=== PATIENT | male | born 1950 | race Caucasian/White ===

== ENCOUNTER 2017-10-31 11:46 | Outpatient (CLI) | payer BC, MEDICARE ==
--- NOTE | 2017-10-31 14:38 | MRI ---
MRI CERVICAL SPINE: HISTORY: Cervical pain, M54.2; cervical radiculopathy, M54.12. FINDINGS: Multiplanar, multisequence noncontrast-enhanced MRI images cervical spine obtained. The spinal cord is unremarkable with no evidence of cord masses or lesions. C1-2: Unremarkable. C2-3: There is moderate C2-3 neural foraminal narrowing due to facet hypertrophy. The right neural foramen is patent. C3-4: Disk desiccation is seen. There is a broad-based disk-osteophyte complex centrally compressin g the thecal sac resulting in mild to moderate central stenosis seen. Moderate right and mild left-s ided C3-4 neural foraminal narrowing is seen due to uncovertebral osteophyte hypertrophy. C4-5: Disk desiccation is seen. There is a broad-based disk-osteophyte complex centrally compressin g the thecal sac resulting in mild to moderate central spinal stenosis seen. The neural foramen are patent. C5-6: There is disk desiccation. There is a broad-based disk-osteophyte complex centrally . This r esults in minimal but not significant evidence of central stenosis. The right neural foramen is pat nt. There is moderate left C5-6 neural foraminal narrowing due to uncovertebral osteophyte hypertrop hy. C6-7: ACDF is seen at the C6-7 level. The central canal and neural foramen are patent. C7-T1: Unremarkable. IMPRESSION: 1. C6-7 anterior cervical diskectomy and fusion. 2. Neural foraminal narrowing as described above at multiple levels including right C3-4 and left C5 -6 levels. POS: [facility]
== END 2017-10-31 11:47 | disposition home or self-care (01) ==
LOC: MRI 11:46
PROVIDERS: ATTEND Neurological Surgery
DX: M47.22 Other spondylosis with radiculopathy, cervical region (principal); M54.2 Cervicalgia; Z98.1 Arthrodesis status
CPT/HCPCS: 72141

== ENCOUNTER 2018-03-31 15:50 | Outpatient (CLI) | payer MEDICARE, BC ==
--- NOTE | 2018-03-31 17:10 | RAD ---
CERVICAL SPINE 4 VIEWS: Date: 03/31/18 COMPARISON: 05/02/16. HISTORY: Cervical radiculopathy. Status post fusion. FINDINGS: No prevertebral soft tissue swelling. Predental space is normal. Stable moderate degenerative change at C3 and C4. Stable, uncomplicated fusion hardware at C6-C7. No perihardware lucency. In the neutral position, minimal anterolisthesis of C2 upon C3, and minimal retrolisthesis of C3 upon C4. Upon flex ion and extension, no significant translational motion. IMPRESSION: Stable degenerative changes and postoperative changes. POS: [facility]
== END 2018-03-31 15:51 | disposition home or self-care (01) ==
LOC: TBSIIMAG 15:50
PROVIDERS: ATTEND Neurological Surgery
DX: M47.22 Other spondylosis with radiculopathy, cervical region (principal); Z98.1 Arthrodesis status
CPT/HCPCS: 72040

== ENCOUNTER 2019-03-27 11:05 | Outpatient (CLI) | payer MEDICARE, BC ==
--- NOTE | 2019-03-27 12:15 | CT ---
CT of lumbar spine: 03/27/2019 HISTORY: Postlaminectomy syndrome, multiple prior back surgeries COMPARISON: 11/08/[address] imaging at 3 mm intervals through the lumbar spine with coronal and sagittal refor matted imaging. FINDINGS: Evaluation for central canal and/or neural foraminal stenosis is limited on routine CT exam ination. There is a small exophytic hypodense lesion emanating from the medial midpole of the right kidney maria esther suring approximately 1.5 cm, unchanged when compared to the 2016 exam. Scattered atherosclerotic calcification of the abdominal aorta and its branches. Stable metallic structures in the region of th e IVC noted. Stimulating leads are present, only partially imaged on this exam. Partially imaged urinary bladder is decompressed and thus not well assessed. There is a transitional vertebral body at the lumbosacral junction which appears to represent a partially sacralized L5 vertebral body. Thus, stable bilateral L4 and L5 pedicle screws are present with vertically oriented interlocking shira s. T12-L1: No osseous cause of significant central canal or neural foraminal stenosis L1-2: Mild bilateral facet hypertrophy and ligamentum flavum hypertrophy. No osseous cause of signifi cant central canal or neural foraminal stenosis. L2-3: Mild bilateral facet hypertrophy and hypertrophy of the ligamentum flavum. Mild bilateral neura l foraminal stenosis, right greater than left. No osseous cause of significant central canal stenosis. L3-4: Bilateral facet hypertrophy with at least mild bilateral neural foraminal stenosis, right great er than left. No osseous cause of significant central canal stenosis L4-5: Bilateral facet joint effusion. No osseous cause of significant central canal or neural foramin al stenosis. Postoperative hardware as detailed above. L5-S1: Mild bilateral facet hypertrophy with no osseous cause of significant central canal or neural foraminal stenosis. No worrisome lytic or blastic bone lesion. No acute fracture or evidence of dislocation. Bilateral laminectomy noted at L5 and right hemilaminectomy noted at L4. IMPRESSION: Degenerative and postoperative change as detailed above. Evaluation for central canal and /or neural foraminal stenosis is limited on this exam and thus, follow-up lumbar spine CT myelogram may be beneficial as clinically warranted.
== END 2019-03-27 11:06 | disposition home or self-care (01) ==
LOC: BICCT 11:05
PROVIDERS: ATTEND Specialist
DX: M96.1 Postlaminectomy syndrome, not elsewhere classified (principal); M47.816 Spondylosis without myelopathy or radiculopathy, lumbar region; M48.061 Spinal stenosis, lumbar region without neurogenic claudication; Z98.890 Other specified postprocedural states
CPT/HCPCS: 72131

== ENCOUNTER 2019-10-06 07:21 | Day surgery (SDC) | payer MEDICARE, BC ==
[2019-10-05 10:31] VITALS: BMI 25.0
[2019-10-06] MEDS ORDERED: PROPOFOL 200 MG/20 ML VIAL ONE (09:34)
[2019-10-06] MEDS ORDERED: Lidocaine 1% PF 5 ML VIAL ONE (09:34)
--- NOTE | 2019-10-06 11:31 | OP ---
DATE OF PROCEDURE: 10/06/2019 PROCEDURE PERFORMED: Colonoscopy with snare polypectomy. PREMEDICATION: Given by Anesthesiology Department. PREPROCEDURE DIAGNOSIS: History of colon polyps. POSTPROCEDURE DIAGNOSES: 1. Two polyps, hepatic flexure and sigmoid colon, removed. 2. Sigmoid diverticulosis. DESCRIPTION OF PROCEDURE: Written consents obtained prior to procedure. After adequate sedation, rectal exam was performed, which was normal. The endoscope was advanced to the cecum. The quality of the bowel prep was good. The cecum, the ileocecal valve, and appendiceal orifice were visualized, appeared normal. The cecum, ascending colon appeared normal. A small 4-mm sessile polyp was noted in the hepatic flexure and was removed with a cold snare and retrieved. The transverse colon, splenic flexure, descending colon appeared normal. An 8-mm sessile polyp was noted in the sigmoid colon and was removed with cold snare and retrieved. A few small diverticula were noted. The rectosigmoid junction and rectal vault appeared normal including retroflexion. The patient tolerated the procedure well. ASSESSMENT: 1. Two colon polyps removed. 2. Mild sigmoid diverticulosis coli. RECOMMENDATIONS: Await biopsy result. Job ID: [id number]
== END 2019-10-06 11:10 | disposition home or self-care (01) ==
LOC: SDC 07:21
PROVIDERS: ATTEND Internal Medicine Gastroenterology
PROC: 0DBN8ZX Excision of Sigmoid Colon, Via Natural or Artificial Opening Endoscopic, Diagnostic (ICD-10-PCS; principal; 2019-10-06)
PROC: 0DBL8ZX Excision of Transverse Colon, Via Natural or Artificial Opening Endoscopic, Diagnostic (ICD-10-PCS; 2019-10-06)
DX: Z12.11 Encounter for screening for malignant neoplasm of colon (principal); K63.5 Polyp of colon; K57.30 Diverticulosis of large intestine without perforation or abscess without bleeding; K21.9 Gastro-esophageal reflux disease without esophagitis; I25.10 Atherosclerotic heart disease of native coronary artery without angina pectoris; E11.9 Type 2 diabetes mellitus without complications; N40.0 Benign prostatic hyperplasia without lower urinary tract symptoms; F32.9 Major depressive disorder, single episode, unspecified; G83.9 Paralytic syndrome, unspecified; Z86.010 Personal history of colon polyps; Z86.73 Personal history of transient ischemic attack (TIA), and cerebral infarction without residual deficits; Z87.891 Personal history of nicotine dependence; Z79.82 Long term (current) use of aspirin; Z79.84 Long term (current) use of oral hypoglycemic drugs; Z79.899 Other long term (current) drug therapy; Z95.5 Presence of coronary angioplasty implant and graft; Z98.1 Arthrodesis status
CPT/HCPCS: 88305; J2001; J2704

== ENCOUNTER 2020-06-03 15:11 | Observation (INO) | payer MEDICARE, BC, OTHER ==
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
[2020-06-03] MEDS ORDERED: Ondansetron PF 4 MG/2 ML Vial IVP PRN (20:27)
[2020-06-03] MEDS ORDERED: HumaLOG 300 UNITS/3 ML VIAL SC PRN ×2 (20:27)
[2020-06-03] MEDS ORDERED: Ondansetron ODT 4 MG TAB PO PRN (20:27)
[2020-06-03] MEDS ORDERED: Dextrose 5% in Water 1,000 ML IV PRN (20:27)
[2020-06-03] MEDS ORDERED: hydrALAZINE 20 MG/ML VIAL SLOW IVP PRN (20:27)
[2020-06-03] MEDS ORDERED: Dextrose 50% Abboject 50 ML SYRINGE SLOW IVP PRN (20:27)
[2020-06-03] MEDS: Famotidine 20 MG TAB PO SCH (21:10)
[2020-06-03] MEDS: Acetaminophen 500 MG TAB PO SCH (21:10)
[2020-06-03] MEDS ORDERED: Morphine 2 MG/ML VIAL SLOW IVP SCH (23:00)
[2020-06-03] MEDS: traMADol HCl 50 MG TAB PO PRN (23:04)
[2020-06-04] MEDS ORDERED: Morphine 2 MG/ML VIAL SLOW IVP PRN
[2020-06-04] MEDS ORDERED: Cyclobenzaprine 10 MG TAB PO PRN (00:07)
[2020-06-04 00:11] VITALS: BMI 24.3
[2020-06-04] MEDS ORDERED: Gabapentin 300 MG CAP PO SCH ×2 (00:15→09:00)
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
[2020-06-04] MEDS: Acetaminophen 500 MG TAB PO SCH ×2 (02:41→08:40)
[2020-06-04 05:31] LABS: #Basophils 0.1 thou/uL (0.0-0.2); #Eosinphils 0.2 thou/uL (0.0-0.7); #Monocytes 0.7 thou/uL (0.11-0.59); #Neutrophils 2.6 thou/uL (1.40-6.50); %Basophils 1.4 % (0.0-1.0); %Eosinophils 2.8 % (0.0-10.0); %Lymphocytes 36.7 % (21.0-51.0); %Monocytes 12.4 % (0.0-10.0); %Neutrophils 46.6 % (42.0-75.0); Hemoglobin 12.8 g/dL (14.0-18.0); Mean Corpuscular HGB CONC 31.8 g/dL (32.0-36.0); Mean Corpuscular Hemoglobin 28.8 pg (27.0-31.0); Mean Corpuscular Volume 90.6 fL (78.0-98.0); Platelet Count 163 thou/uL (130-400); RBC Distribution Width 14.1 % (11.5-14.5); Red Blood Cell (RBC) Count 4.45 mill/uL (4.70-6.10); White Blood Cell (WBC) Count 5.6 thou/uL (4.8-10.8)
[2020-06-04] MEDS: traMADol HCl 50 MG TAB PO PRN (05:32)
[2020-06-04 06:05] LABS: Anion Gap 12 mmol/L (10-20); BUN (Urea Nitrogen) 18 mg/dL (8.4-25.7); Calc. Creatinine Clearance 93 mL/min (70-130); Calcium 9.1 mg/dL (7.8-10.44); Carbon Dioxide 26 mmol/L (23-31); Chloride 103 mmol/L (98-107); Estimated GFR-MDRD 80; Glucose 99 mg/dL (80-115); Magnesium 1.7 mg/dL (1.6-2.6); Phosphorus 3.7 mg/dL (2.3-4.7); Potassium 4.1 mmol/L (3.5-5.1); Sodium 137 mmol/L (136-145)
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
[2020-06-04] MEDS: Famotidine 20 MG TAB PO SCH (08:41)
[2020-06-04] MEDS ORDERED: Docusate 100 MG CAP PO SCH (09:00)
--- NOTE | 2020-06-04 10:42 | CT ---
PRELIMINARY REPORT/DIRECT RADIOLOGY/EMERGENCY AFTER HOURS PROCEDURE PROCEDURE: CT Head without Contrast . HISTORY: Intracranial hemorrhage. TECHNIQUE: Axial images were performed without the administration of IV contrast with or without mult iplanar reformations. COMPARISON: 11/17/2016. FINDINGS: Some patchy peripheral gyral intraparenchymal hemorrhage involving RIGHT frontal and pariet al lobe at the vertex without mass effect. There may be small amount of adjacent subarachnoid hemorr jordyn as well. Small amount of intraparenchymal gyral or subarachnoid hemorrhage on the LEFT near the vertex without mass effect Small subdural hematoma involving the falx probably on the LEFT measuring 3 mm without mass effect. No other acute intracranial abnormality. Encephalomalacia involving RIGHT frontal and parietal lobes related to previous trauma. No midline shift. No hydrocephalus. Previous c raniotomy on the RIGHT. No acute skull or scalp abnormality. Visualized sinuses and mastoids are jaycob ar. IMPRESSION: Small amount of intraparenchymal hemorrhage RIGHT cerebrum at the vertex without mass eff ect with possible small amount of adjacent subarachnoid hemorrhage. Small LEFT falcine subdural witho ut mass effect. Minimal subarachnoid or intraparenchymal hemorrhage LEFT cerebrum at the vertex. Encephalomalacia RIG HT cerebrum with previous craniotomy. No other acute change identified. ELECTRONICALLY SIGNED BY: Sean Montanez MD Jun 04, 2020 4:33:11 AM CDT FINAL REPORT CT BRAIN WITHOUT CONTRAST: I agree with the preliminary report provided. Comparisons are made with a prior CT of the brain from [facility] dated 06/03/2020 at 12:18 p.m. The intraparenchymal contusions involving the right frontal vertex are relatively stable in size erika uring 11 and 10 mm in size on images 26 and 27 of series 2. The parafalcine subdural is relatively s table measuring approximately 5 mm. Small intraparenchymal hemorrhage involving the right frontal lo be on image 24 of series 2 is slightly more prominent measuring 8 mm where previously it measured 7 m m. There are foci of subarachnoid hemorrhage involving the convexity of both frontal lobes that appe ar similar-appearing. No midline shift is evident. Encephalomalacia of the right frontal region wit h craniectomy changes is stable-appearing. Basilar cisterns remain patent. POS: [facility]
[2020-06-04] MEDS ORDERED: Acetaminophen 500 MG TAB PO PRN (10:45)
--- NOTE | 2020-06-04 10:45 | PRG ---
DATE OF SERVICE: 06/03/2020 SUBJECTIVE: The patient is seen and examined. I agree with Tabitha Desai's evaluation on 06/02/2020. The patient is a 69-year-old man with a history of right-sided stroke and hemicraniectomy who had a fall out of his wheelchair yesterday. He is currently at his neurologic baseline. Head CT reveals several punctate areas of traumatic subarachnoid hemorrhage around the previous right-sided injury. This was stable on followup CT. IMPRESSION AND PLAN: The patient will be safely mobilized at discharge, and I do not think further CT scanning is needed in followup. Job ID: [id number]
[2020-06-04] MEDS ORDERED: HYDROcodone/Acetaminophen 10/325 mg Tablet PO PRN (12:00)
[2020-06-04 12:03] VITALS: TEMP 97.9
[2020-06-04 12:27] VITALS: BP 146/97
[2020-06-04 14:14] LABS: SARS-CoV-2 MS2 Positive; SARS-CoV-2 N Gene Negative; SARS-CoV-2 S Gene Negative; SARS-CoV-2 by NAA Not Detected (NotDetected); SARS-CoV-2 orf1ab Negative
--- NOTE | 2020-06-06 16:24 | DIS ---
DATE OF ADMISSION: 06/03/2020 DATE OF DISCHARGE: 06/04/2020 ADMISSION DIAGNOSES: 1. Status post fall out of wheelchair during a transfer. 2. Left frontal lobe contusion. 3. Left parietal subarachnoid hemorrhage. 4. Headache secondary to above. 5. History of cerebrovascular accident with dense left-sided paralysis, history of hypertension, hyperlipidemia, anxiety, and type 2 diabetes. CONSULTATIONS: Neurosurgery, Dr. Lepe. PROCEDURES PERFORMED: None. SUMMARY: The patient is a man, who has a history of left-sided paralysis from a previous stroke. He was transferring to his wheelchair when he fell. The patient was brought to the emergency department, where he underwent evaluation and examination and was noted to have the above injuries. He will be admitted for close observation and serial exams. In the following morning, he underwent a repeat head CT that showed stable exam with improvement. The patient will be discharged home and he will follow up with the neurosurgical team as they directed in seven days or sooner as needed. Job ID: [id number]
== END 2020-06-04 13:12 | disposition home or self-care (01) ==
LOC: ERS 15:11 → 2SE 16:00
PROVIDERS: ADMIT Surgery; ATTEND Surgery
DX: S06.6X9A Traumatic subarachnoid hemorrhage with loss of consciousness of unspecified duration, initial encounter (principal); I10 Essential (primary) hypertension; E11.9 Type 2 diabetes mellitus without complications; E78.5 Hyperlipidemia, unspecified; F41.9 Anxiety disorder, unspecified; Z79.82 Long term (current) use of aspirin; Z79.899 Other long term (current) drug therapy; Z99.3 Dependence on wheelchair; Z11.59 Encounter for screening for other viral diseases; Z20.828 Contact with and (suspected) exposure to other viral communicable diseases; W05.0XXA Fall from non-moving wheelchair, initial encounter
CPT/HCPCS: 70450; 80048; 82962 ×2; 83735; 84100; 85025; 96374; 96376; 97139 ×2; 97530; 97535; 99285; G0378 ×3; J2270 ×2; U0003; 36415; 36416; 87635; G0390

== ENCOUNTER 2020-07-12 13:20 | Outpatient (CLI) | payer MEDICARE, BC ==
--- NOTE | 2020-07-12 14:34 | RAD ---
EXAM: LEFT HIP TWO VIEWS: 07/13/20 HISTORY: Left hip pain. FINDINGS: No evidence for acute fracture or dislocation. Minimal left hip joint osteoarthrosis. IMPRESSION: Minimal osteoarthrosis left hip joint without acute fracture or dislocation. POS: [facility]
--- NOTE | 2020-07-12 14:43 | RAD ---
RIGHT HIP: 07/12/20 Two views. HISTORY: Right hip pain. The right hip appears unremarkable with no significant degenerative change and no evidence of acute f racture. There is a large area of heterotopic ossification seen in the soft tissues lateral to the iliac wing. Heterotopic ossifications such as myositis ossificans is a consideration. IMPRESSION: 1. No abnormality of the right hip or right hemipelvis. 2. Abnormal soft tissue calcification lateral to the right ileum. POS: [facility]
== END 2020-07-12 13:21 | disposition home or self-care (01) ==
LOC: BICRAD 13:20 → RAD 13:21
PROVIDERS: ATTEND Physical Medicine & Rehabilitation
DX: M25.551 Pain in right hip (principal); M25.552 Pain in left hip; M16.12 Unilateral primary osteoarthritis, left hip

== ENCOUNTER 2020-08-03 16:55 | Emergency (ER) | payer MEDICARE, BC, OTHER ==
[2020-08-03 17:53] LABS: #Lymphocytes 1.3 thou/uL (1.20-3.40); #Monocytes 0.5 thou/uL (0.11-0.59); #Neutrophils 5.4 thou/uL (1.40-6.50); %Basophils 0.2 % (0.0-1.0); %Eosinophils 0.5 % (0.0-10.0); %Lymphocytes 17.5 % (21.0-51.0); %Monocytes 6.6 % (0.0-10.0); %Neutrophils 75.3 % (42.0-75.0); Mean Corpuscular HGB CONC 32.6 g/dL (32.0-36.0); Mean Corpuscular Hemoglobin 29.3 pg (27.0-31.0); Mean Corpuscular Volume 89.8 fL (78.0-98.0); Mean Platelet Volume 8.4 fL (7.4-10.4); Platelet Count 133 thou/uL (130-400); RBC Distribution Width 13.5 % (11.5-14.5); Red Blood Cell (RBC) Count 4.45 mill/uL (4.70-6.10); White Blood Cell (WBC) Count 7.2 thou/uL (4.8-10.8)
[2020-08-03 18:17] LABS: ALT (SGPT) 17 U/L (8-55); AST (SGOT) 19 U/L (5-34); Albumin 4.1 g/dL (3.4-4.8); Alkaline Phosphatase 54 U/L (40-110); Anion Gap 15 mmol/L (10-20); BUN (Urea Nitrogen) 17 mg/dL (8.4-25.7); Bilirubin, Total 0.3 mg/dL (0.2-1.2); Calc. Creatinine Clearance 0 mL/min (70-130); Calcium 8.8 mg/dL (7.8-10.44); Carbon Dioxide 22 mmol/L (23-31); Chloride 103 mmol/L (98-107); Estimated GFR-MDRD 71; Globulin 3.4 g/dL (2.4-3.5); Glucose 168 mg/dL (80-115); Potassium 4.1 mmol/L (3.5-5.1); Protein, Total 7.5 g/dL (5.8-8.1); Sodium 136 mmol/L (136-145)
--- NOTE | 2020-08-03 18:33 | RAD ---
PORTABLE CHEST: 08/03/20 PROVIDED CLINICAL HISTORY: Cough. FINDINGS: Comparison 11/11/16. The cardiac and mediastinal silhouette is within normal limits. Vascular calcification involves the a ortic arch. No radiographically apparent focal consolidation. No evidence for pleural fluid or pneumo thorax. IMPRESSION: No radiographic evidence for an acute cardiopulmonary process. POS: [facility]
[2020-08-04 12:00] LABS: SARS-CoV-2 MS2 Positive; SARS-CoV-2 N Gene Positive; SARS-CoV-2 S Gene Positive; SARS-CoV-2 by NAA DETECTED (NotDetected); SARS-CoV-2 orf1ab Positive
== END 2020-08-03 19:20 | disposition home or self-care (01) ==
LOC: ERS 16:55
DX: U07.1 COVID-19 (principal); J12.89 Other viral pneumonia; E11.9 Type 2 diabetes mellitus without complications; E78.00 Pure hypercholesterolemia, unspecified; Z79.899 Other long term (current) drug therapy
CPT/HCPCS: 71045; 80053; 83880; 84484; 85025; 93005; 99284; U0003; 87635

== ENCOUNTER 2021-04-03 13:40 | Outpatient (CLI) | payer MEDICARE, BC | END 2021-04-03 13:41 | disposition home or self-care (01) | LOC: BICRAD 13:40 | PROVIDERS: ATTEND Nurse Practitioner Family | DX: M25.551 Pain in right hip (principal) ==

== ENCOUNTER 2021-05-04 12:36 | Day surgery (SDC) | payer MEDICARE, BC ==
[2021-05-03 11:17] VITALS: BMI 25.0
[2021-05-04] MEDS ORDERED: Sodium Chloride 0.9% 0 ML ONE (14:59)
[2021-05-04] MEDS ORDERED: EPINEPHrine 1 MG/ML AMP ONE (14:59)
[2021-05-04] MEDS ORDERED: Bupivacaine PF 0.5% 30 ML VIAL ONE (14:59)
[2021-05-04] MEDS ORDERED: Propofol 500 MG/50 ML VIAL ONE (16:42)
[2021-05-04] MEDS ORDERED: Fentanyl 100 MCG/2 ML VIAL ONE (16:42)
[2021-05-04] MEDS ORDERED: Esmolol 100 MG/10 ML VIAL ONE (17:04)
[2021-05-04] MEDS ORDERED: Lidocaine 1% PF 5 ML VIAL ONE (17:04)
== END 2021-05-04 19:15 | disposition home or self-care (01) ==
LOC: SDC 12:36
PROVIDERS: ATTEND Specialist
PROC: 00PU3MZ Removal of Neurostimulator Lead from Spinal Canal, Percutaneous Approach (ICD-10-PCS; principal; 2021-05-04)
PROC: 0JPT0MZ Removal of Stimulator Generator from Trunk Subcutaneous Tissue and Fascia, Open Approach (ICD-10-PCS; 2021-05-04)
DX: M96.1 Postlaminectomy syndrome, not elsewhere classified (principal); G89.4 Chronic pain syndrome; M46.1 Sacroiliitis, not elsewhere classified; M47.817 Spondylosis without myelopathy or radiculopathy, lumbosacral region; M47.26 Other spondylosis with radiculopathy, lumbar region; M51.16 Intervertebral disc disorders with radiculopathy, lumbar region; M99.81 Other biomechanical lesions of cervical region; G24.3 Spasmodic torticollis; G57.72 Causalgia of left lower limb; I25.10 Atherosclerotic heart disease of native coronary artery without angina pectoris; E11.9 Type 2 diabetes mellitus without complications; K21.9 Gastro-esophageal reflux disease without esophagitis; N40.0 Benign prostatic hyperplasia without lower urinary tract symptoms; E78.5 Hyperlipidemia, unspecified; I10 Essential (primary) hypertension; I69.364 Other paralytic syndrome following cerebral infarction affecting left non-dominant side; Z87.891 Personal history of nicotine dependence; Z79.82 Long term (current) use of aspirin; Z79.84 Long term (current) use of oral hypoglycemic drugs; Z79.899 Other long term (current) drug therapy; Z95.5 Presence of coronary angioplasty implant and graft; Z98.1 Arthrodesis status
CPT/HCPCS: J0171; J0690; J2704; J3010; S0020

== ENCOUNTER 2023-03-26 10:28 | Outpatient (CLI) | payer MEDICARE, BC | END 2023-03-26 10:29 | disposition home or self-care (01) | LOC: TBSIIMAG 10:28 | PROVIDERS: ATTEND Nurse Practitioner Family | DX: M51.16 Intervertebral disc disorders with radiculopathy, lumbar region (principal); M47.26 Other spondylosis with radiculopathy, lumbar region; G83.4 Cauda equina syndrome; Z98.890 Other specified postprocedural states | CPT/HCPCS: 72148 ==

== ENCOUNTER 2024-01-02 13:29 | Inpatient (IN) | payer MEDICARE, BC ==
[2024-01-02] MEDS ORDERED: Iopamidol-370 76% 500 ML MDV (1 ML CHARGE) ONE (13:41)
[2024-01-02] MEDS ORDERED: Proparacaine 0.5% Opth 15 ML BOT ONE (14:12)
[2024-01-02] MEDS ORDERED: Fluorescein Opthalmic Strip ONE (14:12)
[2024-01-02 14:28] LABS: #Monocytes 0.5 thou/uL (0.11-0.59); #Neutrophils 9.1 thou/uL (1.40-6.50); %Basophils 0.3 % (0.0-1.0); %Lymphocytes 12.2 % (21.0-51.0); %Monocytes 4.9 % (0.0-10.0); %Neutrophils 82.2 % (42.0-75.0); Hematocrit 44.3 % (42.0-52.0); Hemoglobin 14.9 g/dL (14.0-18.0); Mean Corpuscular HGB CONC 33.6 g/dL (32.0-36.0); Mean Corpuscular Volume 92.1 fl (78.0-98.0); Mean Platelet Volume 9.8 fL (7.4-10.4); Platelet Count 203 10x3/uL (130-400); RBC Distribution Width 13.2 % (11.5-14.5); Red Blood Cell (RBC) Count 4.81 mill/uL (4.70-6.10); White Blood Cell (WBC) Count 11.1 10x3/uL (4.8-10.8)
[2024-01-02] MEDS ORDERED: niCARdipine 25 MG/10 ML SDV ONE (14:36)
[2024-01-02] MEDS ORDERED: Ondansetron PF 4 MG/2 ML Vial ONE (14:36)
[2024-01-02 14:53] LABS: ALT (SGPT) 10 U/L (8-55); AST (SGOT) 18 U/L (5-34); Albumin 4.7 g/dL (3.4-4.8); Alkaline Phosphatase 59 U/L (40-110); Anion Gap 17 mmol/L (10-20); BUN (Urea Nitrogen) 19 mg/dL (8.4-25.7); Bilirubin, Total 0.6 mg/dL (0.2-1.2); Calc. Creatinine Clearance 0 mL/min (70-130); Calcium 9.9 mg/dL (7.8-10.44); Carbon Dioxide 22 mmol/L (23-31); Chloride 102 mmol/L (98-107); Estimated GFR 88; Globulin 3.4 g/dL (2.4-3.5); Glucose 160 mg/dL (83-110); Potassium 4.1 mmol/L (3.5-5.1); Protein, Total 8.1 g/dL (5.8-8.1); Sodium 137 mmol/L (136-145)
[2024-01-02] MEDS ORDERED: Senokot S 8.6-50 MG TAB PO PRN (16:23)
[2024-01-02] MEDS ORDERED: Ondansetron PF 4 MG/2 ML Vial IVP PRN (16:23)
[2024-01-02] MEDS ORDERED: Labetalol HCl 100 MG/20 ML VIAL SLOW IVP PRN (16:23)
[2024-01-02] MEDS ORDERED: Calcium Carbonate 500 MG ChewTAB PO PRN (16:23)
[2024-01-02] MEDS ORDERED: Bisacodyl 5 MG TAB PO PRN (16:23)
[2024-01-02] MEDS ORDERED: Mag-Al 1200 mg/1200 mg/30 ML UDCUP PO PRN (16:23)
[2024-01-02] MEDS ORDERED: Dextrose 50% Abboject 50 ML SYRINGE SLOW IVP PRN (16:36)
[2024-01-02] MEDS ORDERED: Dextrose 5% in Water 1,000 ML IV PRN (16:36)
[2024-01-02] MEDS ORDERED: Glucagon 1 MG/ML KIT IM PRN (16:36)
[2024-01-02] MEDS ORDERED: HumaLOG 300 UNITS/3 ML VIAL SC PRN (16:36)
[2024-01-02] MEDS: HYDROcodone/Acetaminophen 10/325 mg Tablet PO PRN (19:02)
[2024-01-02] MEDS: niCARdipine 25 MG in Sodium Chloride 0.9% 250 ML 250 ML IVPB PRN (19:46)
[2024-01-02] MEDS: Gabapentin 300 MG CAP PO SCH (20:38)
[2024-01-02] MEDS: levETIRAcetam 500 mg/5 ml Oral Solution PO SCH (20:39)
[2024-01-02] MEDS: Loratadine 10 MG TAB PO SCH (20:40)
[2024-01-02] MEDS: Montelukast Sodium 10 mg Tablet PO SCH (20:40)
[2024-01-02] MEDS: Tamsulosin HCl 0.4 MG CAP PO SCH (20:41)
[2024-01-02] MEDS: traZODone HCl 50 MG TAB PO SCH (20:42)
[2024-01-03 04:54] LABS: #Eosinphils 0.1 thou/uL (0.0-0.7); #Monocytes 0.9 thou/uL (0.11-0.59); #Neutrophils 4.6 thou/uL (1.40-6.50); %Basophils 0.4 % (0.0-1.0); %Eosinophils 0.9 % (0.0-10.0); %Lymphocytes 28.7 % (21.0-51.0); %Monocytes 10.8 % (0.0-10.0); %Neutrophils 58.6 % (42.0-75.0); Hemoglobin 13.4 g/dL (14.0-18.0); Mean Corpuscular HGB CONC 33.5 g/dL (32.0-36.0); Mean Corpuscular Hemoglobin 31.2 pg (27.0-31.0); Mean Platelet Volume 9.6 fL (7.4-10.4); Platelet Count 161 10x3/uL (130-400); RBC Distribution Width 13.4 % (11.5-14.5); White Blood Cell (WBC) Count 7.9 10x3/uL (4.8-10.8)
[2024-01-03 05:04] LABS: Hemoglobin A1c 5.8 % (4.0-6.0)
[2024-01-03 05:22] LABS: ALT (SGPT) 9 U/L (8-55); AST (SGOT) 11 U/L (5-34); Albumin 4.1 g/dL (3.4-4.8); Alkaline Phosphatase 53 U/L (40-110); Anion Gap 12 mmol/L (10-20); BUN (Urea Nitrogen) 18 mg/dL (8.4-25.7); Bilirubin, Total 0.6 mg/dL (0.2-1.2); Calc. Creatinine Clearance 97 mL/min (70-130); Calcium 9.1 mg/dL (7.8-10.44); Carbon Dioxide 26 mmol/L (23-31); Cardiac Risk 3.4 (Less than 4.5); Chloride 103 mmol/L (98-107); Cholesterol 124 mg/dl (< 200 Desired); Estimated GFR 95; Globulin 2.7 g/dL (2.4-3.5); Glucose 111 mg/dL (83-110); HDL Cholesterol 37 mg/dL (>60 Neg Risk); LDL Cholesterol, Calculated 65 mg/dL; Potassium 3.4 mmol/L (3.5-5.1); Protein, Total 6.8 g/dL (5.8-8.1); Sodium 138 mmol/L (136-145); Triglycerides 109 mg/dL (Less than 150)
[2024-01-03 08:40] VITALS: BMI 22.1
[2024-01-03] MEDS: Sertraline 100 MG TAB PO SCH (08:59)
[2024-01-03] MEDS: Donepezil HCl 10 MG TAB PO SCH (08:59)
[2024-01-03] MEDS: Rosuvastatin 20 MG TAB PO SCH (08:59)
[2024-01-03] MEDS: Finasteride 5 MG TAB PO SCH (09:00)
[2024-01-03] MEDS: Amlodipine 5 MG TAB PO SCH (10:16)
[2024-01-03] MEDS: Latanoprostene Bunod [Vyzulta] 5 ML Drops EA EYE SCH (20:27)
[2024-01-03] MEDS: levETIRAcetam 500 MG TAB PO SCH (20:30)
[2024-01-04 06:36] LABS: #Basophils 0.1 thou/uL (0.0-0.2); #Eosinphils 0.1 thou/uL (0.0-0.7); #Monocytes 0.8 thou/uL (0.11-0.59); #Neutrophils 4.5 thou/uL (1.40-6.50); %Basophils 0.7 % (0.0-1.0); %Eosinophils 1.7 % (0.0-10.0); %Lymphocytes 26.4 % (21.0-51.0); %Monocytes 11.1 % (0.0-10.0); %Neutrophils 59.7 % (42.0-75.0); Hematocrit 39.2 % (42.0-52.0); Hemoglobin 13.1 g/dL (14.0-18.0); Mean Corpuscular HGB CONC 33.4 g/dL (32.0-36.0); Mean Corpuscular Volume 92.7 fl (78.0-98.0); Platelet Count 169 10x3/uL (130-400); RBC Distribution Width 13.3 % (11.5-14.5); Red Blood Cell (RBC) Count 4.23 mill/uL (4.70-6.10); White Blood Cell (WBC) Count 7.6 10x3/uL (4.8-10.8)
[2024-01-04 07:20] LABS: Anion Gap 13 mmol/L (10-20); BUN (Urea Nitrogen) 16 mg/dL (8.4-25.7); Calc. Creatinine Clearance 88 mL/min (70-130); Calcium 8.9 mg/dL (7.8-10.44); Carbon Dioxide 27 mmol/L (23-31); Chloride 104 mmol/L (98-107); Estimated GFR 92; Glucose 111 mg/dL (83-110); Potassium 4.3 mmol/L (3.5-5.1); Sodium 140 mmol/L (136-145)
[2024-01-04] MEDS: HumaLOG 300 UNITS/3 ML VIAL SC PRN (11:56)
[2024-01-04] MEDS: Acetaminophen 325 MG TAB PO PRN (14:42)
[2024-01-05 04:36] LABS: #Basophils 0.1 thou/uL (0.0-0.2); #Eosinphils 0.2 thou/uL (0.0-0.7); #Monocytes 0.8 thou/uL (0.11-0.59); #Neutrophils 3.9 thou/uL (1.40-6.50); %Eosinophils 2.3 % (0.0-10.0); %Lymphocytes 31.2 % (21.0-51.0); %Monocytes 11.3 % (0.0-10.0); %Neutrophils 53.5 % (42.0-75.0); Hematocrit 41.6 % (42.0-52.0); Hemoglobin 13.9 g/dL (14.0-18.0); Mean Corpuscular HGB CONC 33.4 g/dL (32.0-36.0); Mean Corpuscular Hemoglobin 31.2 pg (27.0-31.0); Mean Corpuscular Volume 93.5 fl (78.0-98.0); Mean Platelet Volume 10.1 fL (7.4-10.4); Platelet Count 166 10x3/uL (130-400); RBC Distribution Width 13.2 % (11.5-14.5); Red Blood Cell (RBC) Count 4.45 mill/uL (4.70-6.10); White Blood Cell (WBC) Count 7.2 10x3/uL (4.8-10.8)
[2024-01-05 05:15] LABS: Anion Gap 14 mmol/L (10-20); BUN (Urea Nitrogen) 14 mg/dL (8.4-25.7); Calc. Creatinine Clearance 101 mL/min (70-130); Calcium 9.1 mg/dL (7.8-10.44); Carbon Dioxide 20 mmol/L (23-31); Chloride 103 mmol/L (98-107); Estimated GFR 96; Glucose 99 mg/dL (83-110); Potassium 3.5 mmol/L (3.5-5.1); Sodium 133 mmol/L (136-145)
[2024-01-05 09:27] VITALS: BP 137/70
[2024-01-05 10:14] VITALS: TEMP 98.4
== END 2024-01-05 12:34 | disposition home or self-care (01) | DRG 65 ==
LOC: SUATTDRO 13:29 → ERS 13:29 → CCU 16:08
PROVIDERS: ADMIT Internal Medicine; ATTEND Family Medicine
PROC: 4A10X4Z Monitoring of Central Nervous Electrical Activity, External Approach (ICD-10-PCS; principal; 2024-01-03)
DX: I61.5 Nontraumatic intracerebral hemorrhage, intraventricular (principal); G81.94 Hemiplegia, unspecified affecting left nondominant side; I10 Essential (primary) hypertension; E11.9 Type 2 diabetes mellitus without complications; E78.00 Pure hypercholesterolemia, unspecified; N40.0 Benign prostatic hyperplasia without lower urinary tract symptoms; F39 Unspecified mood [affective] disorder; G40.909 Epilepsy, unspecified, not intractable, without status epilepticus; Z98.890 Other specified postprocedural states; Z79.82 Long term (current) use of aspirin; Z86.73 Personal history of transient ischemic attack (TIA), and cerebral infarction without residual deficits; Z79.84 Long term (current) use of oral hypoglycemic drugs; Z79.899 Other long term (current) drug therapy; Z90.49 Acquired absence of other specified parts of digestive tract
CPT/HCPCS: 36415; 36416; 70450; 70496; 80048; 80053; 80061; 83036; 85025; 95711; 95819; 96374; 96375; J1815; J2405; J7050; Q9967

== ENCOUNTER 2024-01-07 11:38 | Inpatient (IN) | payer MEDICARE, BC ==
[2024-01-07 12:42] LABS: #Monocytes 0.9 thou/uL (0.11-0.59); #Neutrophils 7.8 thou/uL (1.40-6.50); %Basophils 0.3 % (0.0-1.0); %Eosinophils 0.4 % (0.0-10.0); %Monocytes 8.7 % (0.0-10.0); Hematocrit 41.4 % (42.0-52.0); Hemoglobin 14.3 g/dL (14.0-18.0); Mean Corpuscular HGB CONC 34.5 g/dL (32.0-36.0); Mean Corpuscular Hemoglobin 31.6 pg (27.0-31.0); Mean Corpuscular Volume 91.6 fl (78.0-98.0); Mean Platelet Volume 9.9 fL (7.4-10.4); Platelet Count 208 10x3/uL (130-400); RBC Distribution Width 13.2 % (11.5-14.5); Red Blood Cell (RBC) Count 4.52 mill/uL (4.70-6.10); White Blood Cell (WBC) Count 10.8 10x3/uL (4.8-10.8)
[2024-01-07 13:01] LABS: ALT (SGPT) 11 U/L (8-55); AST (SGOT) 11 U/L (5-34); Albumin 4.6 g/dL (3.4-4.8); Alkaline Phosphatase 62 U/L (40-110); Anion Gap 17 mmol/L (10-20); BUN (Urea Nitrogen) 16 mg/dL (8.4-25.7); Bilirubin, Total 0.8 mg/dL (0.2-1.2); Calc. Creatinine Clearance 0 mL/min (70-130); Calcium 9.8 mg/dL (7.8-10.44); Carbon Dioxide 23 mmol/L (23-31); Chloride 100 mmol/L (98-107); Estimated GFR 82; Glucose 153 mg/dL (83-110); Potassium 3.5 mmol/L (3.5-5.1); Protein, Total 7.6 g/dL (5.8-8.1); Sodium 136 mmol/L (136-145)
[2024-01-07 13:13] LABS: Bacteria/HPF 1+ HPF (None Seen); Bilirubin Negative (Negative); Blood, Urine 3+ (Negative); CAUTI Indications for Culture Alt mental st,lethar; Clarity Turbid (Clear); Glucose, Urine (Dipstick) Normal (Negative); Ketone, Urine Negative (Negative); Leukocyte 500 Leu/uL (Negative); Nitrite Negative (Negative); Protein, Urine (Dipstick) 100 mg/dL (Neg-Trace); RBC/HPF Greater than 50 HPF (0-3); Squamous Epithelial 0-3 HPF (0-3); Urobilinogen Normal mg/dL (Less than 2); WBC/HPF 21-50 HPF (0-3)
[2024-01-07 13:15] LABS: Urine Culture Reflex Yes Yes
[2024-01-07 13:16] LABS: Troponin I Less than 0.010 ng/mL (< 0.028)
[2024-01-07] MEDS ORDERED: cefTRIAXone (ROCEPHIN) 1 GM VIAL ONE (14:00)
[2024-01-07] MEDS ORDERED: Sodium Chloride 0.9% 100 ML ONE (14:00)
[2024-01-07] MEDS ORDERED: Glucagon 1 MG/ML KIT IM PRN (14:50)
[2024-01-07] MEDS ORDERED: Dextrose 50% Abboject 50 ML SYRINGE SLOW IVP PRN (14:50)
[2024-01-07] MEDS ORDERED: Ondansetron PF 4 MG/2 ML Vial IVP PRN (14:50)
[2024-01-07] MEDS ORDERED: HumaLOG 300 UNITS/3 ML VIAL SC PRN (14:50)
[2024-01-07] MEDS ORDERED: Bisacodyl 5 MG TAB PO PRN (14:50)
[2024-01-07] MEDS ORDERED: Dextrose 5% in Water 1,000 ML IV PRN (14:50)
[2024-01-07] MEDS ORDERED: Labetalol HCl 100 MG/20 ML VIAL SLOW IVP PRN (15:37)
[2024-01-07] MEDS ORDERED: Acetaminophen 325 MG TAB ONE (17:12)
[2024-01-07] MEDS: Acetaminophen 325 MG TAB PO PRN (17:15)
[2024-01-07 19:00] VITALS: BMI 21.8
[2024-01-07] MEDS ORDERED: Gabapentin 300 MG CAP PO SCH (21:00)
[2024-01-07] MEDS ORDERED: Donepezil HCl 10 MG TAB PO SCH (21:00)
[2024-01-07] MEDS: Gabapentin 300 MG CAP PO SCH (21:35)
[2024-01-07] MEDS: Docusate 100 MG CAP PO SCH (21:35)
[2024-01-07] MEDS: Rosuvastatin 20 MG TAB PO SCH (21:36)
[2024-01-07] MEDS: levETIRAcetam 500 MG TAB PO SCH (21:36)
[2024-01-07] MEDS: Tamsulosin HCl 0.4 MG CAP PO SCH (21:36)
[2024-01-07] MEDS: Acetaminophen/Codeine 30-300mg Tablet PO PRN (22:03)
[2024-01-08] MEDS: traMADol HCl 50 MG TAB PO SCH (00:34)
[2024-01-08 05:39] LABS: #Basophils 0.1 thou/uL (0.0-0.2); #Eosinphils 0.2 thou/uL (0.0-0.7); #Monocytes 0.8 thou/uL (0.11-0.59); #Neutrophils 3.6 thou/uL (1.40-6.50); %Eosinophils 2.3 % (0.0-10.0); %Lymphocytes 33.3 % (21.0-51.0); %Monocytes 11.9 % (0.0-10.0); %Neutrophils 50.6 % (42.0-75.0); Hematocrit 38.4 % (42.0-52.0); Hemoglobin 13.1 g/dL (14.0-18.0); Mean Corpuscular HGB CONC 34.1 g/dL (32.0-36.0); Mean Corpuscular Hemoglobin 31.6 pg (27.0-31.0); Mean Corpuscular Volume 92.5 fl (78.0-98.0); Mean Platelet Volume 9.7 fL (7.4-10.4); Platelet Count 173 10x3/uL (130-400); RBC Distribution Width 13.3 % (11.5-14.5); Red Blood Cell (RBC) Count 4.15 mill/uL (4.70-6.10)
[2024-01-08 06:04] LABS: Anion Gap 12 mmol/L (10-20); BUN (Urea Nitrogen) 14 mg/dL (8.4-25.7); Calc. Creatinine Clearance 98 mL/min (70-130); Calcium 9.1 mg/dL (7.8-10.44); Carbon Dioxide 25 mmol/L (23-31); Chloride 105 mmol/L (98-107); Estimated GFR 95; Glucose 100 mg/dL (83-110); Potassium 3.4 mmol/L (3.5-5.1); Sodium 139 mmol/L (136-145)
[2024-01-08] MEDS: Potassium Chloride 20 MEQ TAB PO SCH (10:06)
[2024-01-08] MEDS: Finasteride 5 MG TAB PO SCH (10:06)
[2024-01-08] MEDS: Donepezil HCl 10 MG TAB PO SCH (10:07)
[2024-01-08] MEDS: Sertraline 100 MG TAB PO SCH (10:07)
[2024-01-08] MEDS: Amlodipine 5 MG TAB PO SCH (10:07)
[2024-01-08] MEDS: cefTRIAXone\\ROCEPHIN 1 GM in Sodium Chloride 0.9% 100 ML IVPB SCH (15:14)
[2024-01-08] MEDS: HYDROcodone/Acetaminophen 7.5/325 mg Tablet PO PRN (16:24)
[2024-01-09 04:15] LABS: #Basophils 0.1 thou/uL (0.0-0.2); #Eosinphils 0.2 thou/uL (0.0-0.7); #Monocytes 1.2 thou/uL (0.11-0.59); #Neutrophils 4.4 thou/uL (1.40-6.50); %Basophils 0.7 % (0.0-1.0); %Eosinophils 2.2 % (0.0-10.0); %Lymphocytes 29.4 % (21.0-51.0); Hemoglobin 13.6 g/dL (14.0-18.0); Mean Corpuscular Hemoglobin 31.9 pg (27.0-31.0); Mean Corpuscular Volume 93.7 fl (78.0-98.0); Mean Platelet Volume 9.8 fL (7.4-10.4); Platelet Count 176 10x3/uL (130-400); RBC Distribution Width 13.4 % (11.5-14.5); Red Blood Cell (RBC) Count 4.27 mill/uL (4.70-6.10); White Blood Cell (WBC) Count 8.3 10x3/uL (4.8-10.8)
[2024-01-09 04:30] LABS: Anion Gap 16 mmol/L (10-20); BUN (Urea Nitrogen) 17 mg/dL (8.4-25.7); Calc. Creatinine Clearance 89 mL/min (70-130); Calcium 9.2 mg/dL (7.8-10.44); Carbon Dioxide 22 mmol/L (23-31); Chloride 105 mmol/L (98-107); Estimated GFR 92; Glucose 123 mg/dL (83-110); Potassium 3.9 mmol/L (3.5-5.1); Sodium 139 mmol/L (136-145)
[2024-01-09] MEDS: [UNRECOGNIZED DRUG - OTHER] EA EYE SCH (10:42)
[2024-01-09] MEDS: HumaLOG 300 UNITS/3 ML VIAL SC PRN (13:18)
[2024-01-09 15:22] VITALS: BP 143/80; TEMP 98
== END 2024-01-09 17:42 | disposition home health service (06) | DRG 689 ==
LOC: ERS 11:38 → ERHOLD 14:04 → 2SE 17:59
PROVIDERS: ADMIT Family Medicine; ATTEND Internal Medicine
DX: N39.0 Urinary tract infection, site not specified (principal); I60.9 Nontraumatic subarachnoid hemorrhage, unspecified; I69.354 Hemiplegia and hemiparesis following cerebral infarction affecting left non-dominant side; H92.02 Otalgia, left ear; G40.909 Epilepsy, unspecified, not intractable, without status epilepticus; E78.5 Hyperlipidemia, unspecified; I10 Essential (primary) hypertension; N40.0 Benign prostatic hyperplasia without lower urinary tract symptoms; R31.9 Hematuria, unspecified; N40.1 Benign prostatic hyperplasia with lower urinary tract symptoms; E11.9 Type 2 diabetes mellitus without complications; K21.9 Gastro-esophageal reflux disease without esophagitis; K59.09 Other constipation
CPT/HCPCS: 36415; 36416; 70450; 80048; 80053; 81001; 83605; 84484; 85025; 87040; 87077; 87086; 87149; 87186; 93005; 96361; 96365; J0696; J1815; J3490

== ENCOUNTER 2024-10-06 13:41 | Outpatient (CLI) | payer MEDICARE, BC | END 2024-10-06 13:42 | disposition home or self-care (01) | LOC: CT 13:41 | PROVIDERS: ATTEND Nurse Practitioner Family | DX: N50.811 Right testicular pain (principal); R10.9 Unspecified abdominal pain; N20.0 Calculus of kidney | CPT/HCPCS: 74176; 76870; 93976 ==

== ENCOUNTER 2024-12-09 06:42 | Day surgery (SDC) | payer MEDICARE, BC ==
[2024-12-08 12:31] VITALS: BMI 25.0
[2024-12-09] MEDS ORDERED: PROPOFOL 60 ML ONE (08:21)
[2024-12-09] MEDS ORDERED: Lidocaine 2% PF 5 ML VIAL ONE (08:22)
[2024-12-09] MEDS ORDERED: PHENYLEPHRINE-NS 100 MCG/ML 10 ML SYRINGE ONE (08:58)
[2024-12-09] MEDS ORDERED: ePHEDrine Sulfate 50 MG/10 ML VIAL ONE (09:05)
== END 2024-12-09 10:54 | disposition home or self-care (01) ==
LOC: SDC 06:42
PROVIDERS: ATTEND Internal Medicine Gastroenterology
PROC: 0DBN8ZX Excision of Sigmoid Colon, Via Natural or Artificial Opening Endoscopic, Diagnostic (ICD-10-PCS; principal; 2024-12-09)
PROC: 0DBL8ZX Excision of Transverse Colon, Via Natural or Artificial Opening Endoscopic, Diagnostic (ICD-10-PCS; 2024-12-09)
DX: Z12.11 Encounter for screening for malignant neoplasm of colon (principal); D12.3 Benign neoplasm of transverse colon; D12.5 Benign neoplasm of sigmoid colon; K57.30 Diverticulosis of large intestine without perforation or abscess without bleeding; K21.9 Gastro-esophageal reflux disease without esophagitis; F32.A Depression, unspecified; E11.9 Type 2 diabetes mellitus without complications; I10 Essential (primary) hypertension; E78.00 Pure hypercholesterolemia, unspecified; I25.10 Atherosclerotic heart disease of native coronary artery without angina pectoris; N40.0 Benign prostatic hyperplasia without lower urinary tract symptoms; Z86.0100 Personal history of colon polyps, unspecified; Z86.711 Personal history of pulmonary embolism; Z86.718 Personal history of other venous thrombosis and embolism; Z98.49 Cataract extraction status, unspecified eye; Z98.890 Other specified postprocedural states; Z90.49 Acquired absence of other specified parts of digestive tract; Z79.899 Other long term (current) drug therapy; Z87.891 Personal history of nicotine dependence
CPT/HCPCS: 45385; J2704; 88305

== ENCOUNTER 2025-08-05 08:52 | Day surgery (SDC) | payer MEDICARE, BC ==
[2025-07-29 09:55] VITALS: BMI 22.5
[2025-08-05] MEDS ORDERED: fentaNYL PF 100 MCG/2 ML SYRINGE ONE (10:36)
[2025-08-05] MEDS ORDERED: Rocuronium Bromide 10 MG/ML (10ML VIAL) ONE (10:36)
[2025-08-05] MEDS ORDERED: Lidocaine 1% PF 5 ML VIAL ONE (10:36)
[2025-08-05] MEDS ORDERED: Etomidate 40 MG (20 mL) VIAL ONE (10:36)
[2025-08-05] MEDS ORDERED: LevoFLOXacin D5W 500 mg (100 mL) BAG ONE (10:44)
[2025-08-05] MEDS ORDERED: PHENYLEPHRINE-NS 100 MCG/ML 10 ML SYRINGE ONE (11:05)
[2025-08-05] MEDS ORDERED: cefTRIAXone (ROCEPHIN) 1 GM VIAL ONE (12:03)
[2025-08-05] MEDS ORDERED: Ondansetron PF 4 MG/2 ML Vial ONE (14:10)
[2025-08-05] MEDS ORDERED: SUGAMMADEX SODIUM 200 MG/2 ML VIAL ONE (14:10)
[2025-08-05] MEDS ORDERED: Oxybutynin 5 MG TAB ONE (14:42)
[2025-08-16 15:14] LABS: CA Oxalate Dihydrate 50 % (.); CA Oxalate Monohydrate 50 % (.); Color Brown (.); Stone Weight 1062 mg (.)
== END 2025-08-05 16:20 | disposition home or self-care (01) ==
LOC: SDC 08:52
PROVIDERS: ATTEND Urology
PROC: 0TC08ZZ Extirpation of Matter from Right Kidney, Via Natural or Artificial Opening Endoscopic (ICD-10-PCS; principal; 2025-08-05)
PROC: 0T768DZ Dilation of Right Ureter with Intraluminal Device, Via Natural or Artificial Opening Endoscopic (ICD-10-PCS; 2025-08-05)
PROC: 0TF38ZZ Fragmentation in Right Kidney Pelvis, Via Natural or Artificial Opening Endoscopic (ICD-10-PCS; 2025-08-05)
DX: N20.0 Calculus of kidney (principal); R31.0 Gross hematuria; Z87.891 Personal history of nicotine dependence
CPT/HCPCS: 74420; 82365; C1747; C1758; C1769 ×2; C2617; C9761; J0696; J1100; J1956; Q9967; 88300

== ENCOUNTER 2025-10-07 12:24 | Inpatient (IN) | payer MEDICARE, BC ==
[2025-10-07 13:05] LABS: #Basophils 0.05 10x3/uL (0.0-0.2); #Eosinophils Less than 0.03 10x3/uL (0.0-0.7); #Monocytes 0.46 10x3/uL (0.11-0.59); #Neutrophils 9.24 10x3/uL (1.40-6.50); %Basophils 0.5 % (0.0-1.0); %Eosinophils 0.1 % (0.0-10.0); %Lymphocytes 8.1 % (21.0-51.0); %Monocytes 4.3 % (0.0-10.0); %Neutrophils 86.6 % (42.0-75.0); Hematocrit 37.4 % (42.0-52.0); Hemoglobin 12.1 g/dL (14.0-18.0); Mean Corpuscular Hemoglobin 28.5 pg (27.0-31.0); Mean Corpuscular Volume 88.2 fL (78.0-98.0); Platelet Count 155 10x3/uL (130-400); Red Blood Cell (RBC) Count 4.24 mill/uL (4.70-6.10); White Blood Cell (WBC) Count 10.66 10x3/uL (4.8-10.8)
[2025-10-07] MEDS ORDERED: Acetaminophen 500 MG TAB ONE (13:12)
[2025-10-07] MEDS ORDERED: diphenhydrAMINE 50 MG/ML VIAL ONE (13:13)
[2025-10-07] MEDS ORDERED: Metoclopramide HCl 10 MG (2 mL) VIAL ONE (13:13)
[2025-10-07 13:19] LABS: INR-International Normal Ratio 1.0; PTT 27.2 sec (22.9-36.1); Prothrombin Time 13.2 sec (12.0-14.7)
[2025-10-07 13:21] LABS: ALT (SGPT) 11 U/L (Less than 45); AST (SGOT) 25 U/L (11-34); Albumin 4.1 g/dL (3.1-4.5); Alkaline Phosphatase 50 U/L (40-110); Anion Gap 17 mmol/L (10-20); BUN (Urea Nitrogen) 13 mg/dL (8.4-25.7); Bilirubin, Total 0.4 mg/dL (0.3-1.2); Calc. Creatinine Clearance 0 mL/min (70-130); Calcium 9.1 mg/dL (7.8-10.44); Carbon Dioxide 21 mmol/L (23-31); Chloride 111 mmol/L (98-107); Globulin 2.8 g/dL (2.4-3.5); Glucose 130 mg/dL (83-110); Magnesium 1.4 mg/dL (1.6-2.6); Potassium 3.7 mmol/L (3.5-5.1); Sodium 145 mmol/L (136-145)
[2025-10-07] MEDS ORDERED: Magnesium 2 GM/50 ML BAG (IN WATER) ONE (14:04)
[2025-10-07] MEDS ORDERED: niCARdipine 25 MG/10 ML SDV ONE (15:01)
[2025-10-07] MEDS ORDERED: levETIRAcetam 500 MG (5 mL) VIAL ONE (15:01)
[2025-10-07] MEDS ORDERED: niCARdipine 25 MG in Sodium Chloride 0.9% 250 ML 250 ML IVPB PRN (15:04)
[2025-10-07] MEDS ORDERED: Acetaminophen 325 MG TAB PO PRN (15:20)
[2025-10-07] MEDS: hydrALAZINE 20 MG/ML VIAL ONE (16:48)
[2025-10-07] MEDS: HYDROcodone/Acetaminophen 10/325 mg Tablet PO PRN (20:31)
[2025-10-07] MEDS: levETIRAcetam 500 MG TAB PO SCH (20:47)
[2025-10-08] MEDS: hydrALAZINE 20 MG/ML VIAL SLOW IVP PRN (04:34)
[2025-10-08] MEDS: Ondansetron PF 4 MG/2 ML Vial IVP PRN ×2 (05:42→20:18)
[2025-10-08 05:47] LABS: #Basophils Less than 0.03 10x3/uL (0.0-0.2); #Eosinophils Less than 0.03 10x3/uL (0.0-0.7); #Monocytes 0.55 10x3/uL (0.11-0.59); #Neutrophils 6.99 10x3/uL (1.40-6.50); %Basophils 0.2 % (0.0-1.0); %Eosinophils 0.0 % (0.0-10.0); %Lymphocytes 12.8 % (21.0-51.0); %Monocytes 6.3 % (0.0-10.0); %Neutrophils 80.4 % (42.0-75.0); Hematocrit 35.9 % (42.0-52.0); Hemoglobin 11.4 g/dL (14.0-18.0); Mean Corpuscular Hemoglobin 28.8 pg (27.0-31.0); Mean Corpuscular Volume 90.7 fL (78.0-98.0); Platelet Count 150 10x3/uL (130-400); Red Blood Cell (RBC) Count 3.96 mill/uL (4.70-6.10); White Blood Cell (WBC) Count 8.70 10x3/uL (4.8-10.8)
[2025-10-08 06:01] LABS: Anion Gap 14 mmol/L (10-20); BUN (Urea Nitrogen) 11 mg/dL (8.4-25.7); Calc. Creatinine Clearance 102 mL/min (70-130); Calcium 8.9 mg/dL (7.8-10.44); Carbon Dioxide 23 mmol/L (23-31); Chloride 108 mmol/L (98-107); Glucose 127 mg/dL (83-110); Potassium 3.2 mmol/L (3.5-5.1); Sodium 142 mmol/L (136-145)
[2025-10-08] MEDS: Potassium Chloride 40 MEQ in Premix 1 BAG IVPB SCH (08:14)
[2025-10-08] MEDS: Sertraline 100 MG TAB PO SCH (09:22)
[2025-10-08] MEDS: Finasteride 5 MG TAB PO SCH (09:22)
[2025-10-08] MEDS: Potassium Chloride 20 MEQ in Premix 1 BAG IVPB SCH (09:23)
[2025-10-08] MEDS ORDERED: Iopamidol 370 76% 100 ML VIAL ONE (11:31)
[2025-10-08] MEDS: Rosuvastatin 20 MG TAB PO SCH (20:09)
[2025-10-09] MEDS: Acetaminophen 325 MG TAB PO PRN (01:29)
[2025-10-09 04:40] LABS: #Basophils Less than 0.03 10x3/uL (0.0-0.2); #Eosinophils Less than 0.03 10x3/uL (0.0-0.7); #Monocytes 0.86 10x3/uL (0.11-0.59); #Neutrophils 8.17 10x3/uL (1.40-6.50); %Basophils 0.1 % (0.0-1.0); %Eosinophils 0.0 % (0.0-10.0); %Lymphocytes 11.1 % (21.0-51.0); %Monocytes 8.4 % (0.0-10.0); %Neutrophils 80.1 % (42.0-75.0); Hematocrit 35.7 % (42.0-52.0); Hemoglobin 11.4 g/dL (14.0-18.0); Mean Corpuscular Hemoglobin 29.1 pg (27.0-31.0); Mean Corpuscular Volume 91.1 fL (78.0-98.0); Platelet Count 160 10x3/uL (130-400); Red Blood Cell (RBC) Count 3.92 mill/uL (4.70-6.10); White Blood Cell (WBC) Count 10.20 10x3/uL (4.8-10.8)
[2025-10-09 04:54] LABS: Anion Gap 16 mmol/L (10-20); BUN (Urea Nitrogen) 17 mg/dL (8.4-25.7); Calc. Creatinine Clearance 94 mL/min (70-130); Calcium 9.2 mg/dL (7.8-10.44); Carbon Dioxide 24 mmol/L (23-31); Chloride 106 mmol/L (98-107); Glucose 130 mg/dL (83-110); Magnesium 1.8 mg/dL (1.6-2.6); Potassium 3.7 mmol/L (3.5-5.1); Sodium 142 mmol/L (136-145)
[2025-10-09] MEDS: Ondansetron PF 4 MG/2 ML Vial IVP PRN (11:53)
[2025-10-10 07:18] LABS: Anion Gap 17 mmol/L (10-20); BUN (Urea Nitrogen) 18 mg/dL (8.4-25.7); CK (CPK) 199 U/L (30-200); Calc. Creatinine Clearance 97 mL/min (70-130); Calcium 9.0 mg/dL (7.8-10.44); Carbon Dioxide 24 mmol/L (23-31); Chloride 105 mmol/L (98-107); Glucose 125 mg/dL (83-110); Potassium 3.7 mmol/L (3.5-5.1); Sodium 142 mmol/L (136-145)
[2025-10-10] MEDS ORDERED: diphenhydrAMINE 25 MG CAP PO PRN (15:44)
[2025-10-11] MEDS: Losartan 25 MG TAB PO SCH (12:19)
[2025-10-12 04:02] LABS: #Basophils Less than 0.03 10x3/uL (0.0-0.2); #Eosinophils Less than 0.03 10x3/uL (0.0-0.7); #Monocytes 0.80 10x3/uL (0.11-0.59); #Neutrophils 7.05 10x3/uL (1.40-6.50); %Basophils 0.2 % (0.0-1.0); %Eosinophils 0.1 % (0.0-10.0); %Lymphocytes 11.1 % (21.0-51.0); %Monocytes 9.0 % (0.0-10.0); %Neutrophils 79.3 % (42.0-75.0); Hematocrit 35.9 % (42.0-52.0); Hemoglobin 11.7 g/dL (14.0-18.0); Mean Corpuscular Hemoglobin 28.8 pg (27.0-31.0); Mean Corpuscular Volume 88.4 fL (78.0-98.0); Platelet Count 175 10x3/uL (130-400); Red Blood Cell (RBC) Count 4.06 mill/uL (4.70-6.10); White Blood Cell (WBC) Count 8.90 10x3/uL (4.8-10.8)
[2025-10-12 04:30] LABS: Anion Gap 16 mmol/L (10-20); BUN (Urea Nitrogen) 14 mg/dL (8.4-25.7); Calc. Creatinine Clearance 119 mL/min (70-130); Calcium 9.1 mg/dL (7.8-10.44); Carbon Dioxide 25 mmol/L (23-31); Chloride 100 mmol/L (98-107); Glucose 134 mg/dL (83-110); Magnesium 1.5 mg/dL (1.6-2.6); Potassium 3.4 mmol/L (3.5-5.1); Sodium 138 mmol/L (136-145)
[2025-10-12 06:55] VITALS: BMI 20.9
[2025-10-12] MEDS: Losartan 25 MG TAB PO SCH ×2 (08:16→09:35)
[2025-10-12] MEDS: Magnesium 2 GM/50 ML(in water) 2 GM in Premix 1 BAG IVPB SCH (09:41)
[2025-10-12] MEDS: Metoclopramide HCl 10 MG (2 mL) VIAL IVP SCH (12:30)
[2025-10-12] MEDS ORDERED: Metoclopramide HCl 10 MG (2 mL) VIAL IVP PRN (15:54)
[2025-10-12] MEDS: Pantoprazole 40 MG VIAL IVP SCH (17:10)
[2025-10-13] MEDS: Losartan 25 MG TAB PO SCH (09:05)
[2025-10-13] MEDS: Pantoprazole 40 MG VIAL IVP SCH (09:06)
[2025-10-13] MEDS: Mirtazapine 15 MG TAB PO SCH (21:28)
[2025-10-14] MEDS ORDERED: Ondansetron PF 4 MG/2 ML Vial IVP PRN (14:14)
[2025-10-14 14:59] VITALS: BMI 20.8
[2025-10-15] MEDS: levETIRAcetam 500 MG TAB PO SCH (00:23)
[2025-10-15 09:08] LABS: #Basophils 0.05 10x3/uL (0.0-0.2); #Eosinophils 0.09 10x3/uL (0.0-0.7); #Monocytes 0.89 10x3/uL (0.11-0.59); #Neutrophils 4.91 10x3/uL (1.40-6.50); %Basophils 0.7 % (0.0-1.0); %Eosinophils 1.2 % (0.0-10.0); %Lymphocytes 21.2 % (21.0-51.0); %Monocytes 11.7 % (0.0-10.0); %Neutrophils 64.8 % (42.0-75.0); Hematocrit 36.2 % (42.0-52.0); Hemoglobin 11.9 g/dL (14.0-18.0); Mean Corpuscular Hemoglobin 29.6 pg (27.0-31.0); Mean Corpuscular Volume 90.0 fL (78.0-98.0); Platelet Count 189 10x3/uL (130-400); Red Blood Cell (RBC) Count 4.02 mill/uL (4.70-6.10); White Blood Cell (WBC) Count 7.58 10x3/uL (4.8-10.8)
[2025-10-15 09:25] LABS: ALT (SGPT) Less than 7 U/L (Less than 45); AST (SGOT) 16 U/L (11-34); Albumin 3.3 g/dL (3.1-4.5); Alkaline Phosphatase 53 U/L (40-110); Anion Gap 13 mmol/L (10-20); BUN (Urea Nitrogen) 13 mg/dL (8.4-25.7); Bilirubin, Total 0.4 mg/dL (0.3-1.2); Calc. Creatinine Clearance 105 mL/min (70-130); Calcium 9.0 mg/dL (7.8-10.44); Carbon Dioxide 27 mmol/L (23-31); Chloride 102 mmol/L (98-107); Globulin 2.9 g/dL (2.4-3.5); Glucose 101 mg/dL (83-110); Potassium 3.2 mmol/L (3.5-5.1); Sodium 139 mmol/L (136-145)
[2025-10-15] MEDS: Sertraline 100 MG TAB PO SCH (10:08)
[2025-10-16 03:34] LABS: #Basophils 0.04 10x3/uL (0.0-0.2); #Eosinophils 0.07 10x3/uL (0.0-0.7); #Monocytes 0.92 10x3/uL (0.11-0.59); #Neutrophils 4.75 10x3/uL (1.40-6.50); %Basophils 0.5 % (0.0-1.0); %Eosinophils 0.9 % (0.0-10.0); %Lymphocytes 22.8 % (21.0-51.0); %Monocytes 12.3 % (0.0-10.0); %Neutrophils 63.2 % (42.0-75.0); Hematocrit 33.3 % (42.0-52.0); Hemoglobin 11.0 g/dL (14.0-18.0); Mean Corpuscular Hemoglobin 29.3 pg (27.0-31.0); Mean Corpuscular Volume 88.6 fL (78.0-98.0); Platelet Count 182 10x3/uL (130-400); Red Blood Cell (RBC) Count 3.76 mill/uL (4.70-6.10); White Blood Cell (WBC) Count 7.51 10x3/uL (4.8-10.8)
[2025-10-16 07:20] LABS: Glucose, Urine (Dipstick) Negative (Negative); Leukocyte Negative (Negative); Protein, Urine (Dipstick) Trace mg/dL (Neg-Trace); Specific Gravity, Urine 1.015 (1.005-1.030)
[2025-10-16 07:24] LABS: Mucous/LPF Rare LPF (<2+); RBC/HPF 21-50 HPF (0-3); WBC/HPF 0-3 HPF (0-3)
[2025-10-16 07:29] LABS: Bacteria/HPF 1+ HPF (None Seen)
[2025-10-16] MEDS ORDERED: Dextrose 50% Abboject 50 ML SYRINGE SLOW IVP PRN (12:54)
[2025-10-16] MEDS ORDERED: Glucagon 1 MG/ML KIT IM PRN (12:54)
[2025-10-17 05:19] LABS: #Basophils 0.04 10x3/uL (0.0-0.2); #Eosinophils 0.20 10x3/uL (0.0-0.7); #Monocytes 0.91 10x3/uL (0.11-0.59); #Neutrophils 4.00 10x3/uL (1.40-6.50); %Basophils 0.6 % (0.0-1.0); %Eosinophils 2.8 % (0.0-10.0); %Lymphocytes 27.4 % (21.0-51.0); %Monocytes 12.7 % (0.0-10.0); %Neutrophils 55.9 % (42.0-75.0); Hematocrit 34.6 % (42.0-52.0); Hemoglobin 11.3 g/dL (14.0-18.0); Mean Corpuscular Hemoglobin 28.6 pg (27.0-31.0); Mean Corpuscular Volume 87.6 fL (78.0-98.0); Platelet Count 185 10x3/uL (130-400); Red Blood Cell (RBC) Count 3.95 mill/uL (4.70-6.10); White Blood Cell (WBC) Count 7.15 10x3/uL (4.8-10.8)
[2025-10-17 05:40] LABS: ALT (SGPT) Less than 7 U/L (Less than 45); AST (SGOT) 16 U/L (11-34); Albumin 3.1 g/dL (3.1-4.5); Alkaline Phosphatase 51 U/L (40-110); Anion Gap 13 mmol/L (10-20); BUN (Urea Nitrogen) 9 mg/dL (8.4-25.7); Bilirubin, Total 0.7 mg/dL (0.3-1.2); Calc. Creatinine Clearance 115 mL/min (70-130); Calcium 8.6 mg/dL (7.8-10.44); Carbon Dioxide 28 mmol/L (23-31); Chloride 98 mmol/L (98-107); Globulin 2.9 g/dL (2.4-3.5); Glucose 107 mg/dL (83-110); Magnesium 1.5 mg/dL (1.6-2.6); Potassium 2.6 mmol/L (3.5-5.1); Sodium 136 mmol/L (136-145)
[2025-10-17] MEDS ORDERED: PHOS-NAK 1 PKT PACK PO PRN (06:00)
[2025-10-17] MEDS ORDERED: Electrolyte Replacement Protocol 1 EACH FS SCH (06:00)
[2025-10-17] MEDS: Potassium Chloride 20 MEQ in Premix 1 BAG IVPB PRN (06:03)
[2025-10-17] MEDS: Magnesium Sulfate In Water 4 GM in Premix 1 BAG IVPB PRN (06:19)
[2025-10-17] MEDS: Magnesium 2 GM/50 ML(in water) 2 GM in Premix 1 BAG IVPB SCH (09:10)
[2025-10-17] MEDS: Potassium Chloride 20 MEQ in Premix 1 BAG IVPB SCH (10:35)
[2025-10-17] MEDS: Senokot S 8.6-50 MG TAB PO PRN (21:04)
[2025-10-17 21:52] LABS: Potassium 3.6 mmol/L (3.5-5.1)
[2025-10-18 04:30] LABS: #Basophils 0.05 10x3/uL (0.0-0.2); #Eosinophils 0.19 10x3/uL (0.0-0.7); #Monocytes 0.85 10x3/uL (0.11-0.59); #Neutrophils 4.33 10x3/uL (1.40-6.50); %Basophils 0.7 % (0.0-1.0); %Eosinophils 2.6 % (0.0-10.0); %Lymphocytes 24.3 % (21.0-51.0); %Monocytes 11.8 % (0.0-10.0); %Neutrophils 60.2 % (42.0-75.0); Hematocrit 35.1 % (42.0-52.0); Hemoglobin 11.7 g/dL (14.0-18.0); Mean Corpuscular Hemoglobin 28.6 pg (27.0-31.0); Mean Corpuscular Volume 85.8 fL (78.0-98.0); Platelet Count 187 10x3/uL (130-400); Red Blood Cell (RBC) Count 4.09 mill/uL (4.70-6.10); White Blood Cell (WBC) Count 7.20 10x3/uL (4.8-10.8)
[2025-10-18 04:48] LABS: Anion Gap 13 mmol/L (10-20); BUN (Urea Nitrogen) 9 mg/dL (8.4-25.7); Calc. Creatinine Clearance 113 mL/min (70-130); Carbon Dioxide 26 mmol/L (23-31); Chloride 100 mmol/L (98-107); Potassium 3.0 mmol/L (3.5-5.1); Sodium 136 mmol/L (136-145)
[2025-10-18 04:49] LABS: ALT (SGPT) 7 U/L (Less than 45); AST (SGOT) 15 U/L (11-34); Albumin 3.2 g/dL (3.1-4.5); Alkaline Phosphatase 54 U/L (40-110); Bilirubin, Total 0.7 mg/dL (0.3-1.2); Calcium 8.6 mg/dL (7.8-10.44); Globulin 3.0 g/dL (2.4-3.5); Glucose 116 mg/dL (83-110); Magnesium 1.8 mg/dL (1.6-2.6)
[2025-10-18] MEDS ORDERED: Potassium Chloride 40 MEQ in Premix 1 BAG IVPB SCH (09:00)
[2025-10-18 10:22] LABS: Potassium 3.6 mmol/L (3.5-5.1)
[2025-10-18 11:45] VITALS: BP 136/79; TEMP 98.7
[2025-10-18] MEDS: Potassium Chloride 10 MEQ in Premix 1 BAG IVPB SCH (14:10)
[2025-10-18] MEDS: Potassium Chloride 20 MEQ in Premix 1 BAG IVPB SCH (14:11)
== END 2025-10-18 14:20 | DRG 64 ==
LOC: ERS 12:24 → CCU 15:16 → 2SE 10-10 10:32
PROVIDERS: ADMIT Student in an Organized Health Care Education/Training Program; ATTEND Internal Medicine
DX: I61.9 Nontraumatic intracerebral hemorrhage, unspecified (principal); G93.41 Metabolic encephalopathy; G40.909 Epilepsy, unspecified, not intractable, without status epilepticus; I25.10 Atherosclerotic heart disease of native coronary artery without angina pectoris; Z87.442 Personal history of urinary calculi; H40.9 Unspecified glaucoma; Z96.0 Presence of urogenital implants; I10 Essential (primary) hypertension; E11.65 Type 2 diabetes mellitus with hyperglycemia; Z79.84 Long term (current) use of oral hypoglycemic drugs; Z86.73 Personal history of transient ischemic attack (TIA), and cerebral infarction without residual deficits; E78.00 Pure hypercholesterolemia, unspecified; Z98.1 Arthrodesis status; Z98.890 Other specified postprocedural states
CPT/HCPCS: 36415; 36416; 70450; 70496; 70498; 71045; 80048; 80053; 81003; 81015; 82550; 83735; 84443; 84484; 85025; 85610; 85730; 87086; 93005; 93010; 95819; 96365; 96367; 96368; 96375; J0360; J1200; J1815; J1953; J2270; J2310; J2405; J2470; J2765; J3010; J3475; J3480; J7120; Q9967